=== PATIENT | female | born 1950 | race Two or more races ===

== ENCOUNTER 2022-08-19 16:59 | Inpatient (IN) | payer OTHER, MEDICAID ==
[~2022-08-19] VITALS: Ht 144.8 cm; Wt 66.0 kg
[2022-08-19] MEDS: ACCU-CHEK COMFORT CURVE STRIP VI SCH (06:50)
[2022-08-19 17:32] LABS: Basophils # (auto) 0 10 ^3/uL (0-0.2); Basophils % (auto) 0.2 % (0.0-2.0); Eosinophils # (auto) 0 10 ^3/uL (0-0.8); Eosinophils % (auto) 0.1 % (0.0-7.0); Hematocrit 45.2 % (36.0-46.0); Hemoglobin 15.2 g/dL (12.2-16.2); Lymphocytes # (auto) 1.4 10 ^3/uL (0.4-5.4); Lymphocytes % (auto) 9.7 % (10.0-50.0); Mean Corpuscular Hemoglobin 30.9 pg (28.0-32.0); Mean Corpuscular Hgb Conc. 33.6 g/dL (32.0-36.0); Mean Corpuscular Volume 91.9 fL (80.0-100.0); Monocytes # (auto) 0.8 10 ^3/uL (0-1.3); Monocytes % (auto) 5.2 % (0.0-12.0); Neutrophils # (auto) 12.2 10 ^3/uL (1.6-8.6); Neutrophils % (auto) 84.8 % (37.0-80.0); Nucleated Red Blood Cells % 0.3 %; Red Blood Cells 4.91 10^6/uL (4.0-5.20); Red Cell Distribution Width 13.4 % (11.8-14.3); White Blood Cell 14.5 10^3/uL (4.4-10.8)
[2022-08-19 17:46] LABS: Albumin 3.9 g/dL (3.4-5.0); INR 0.9 (0.9-1.15); Magnesium 2.3 mg/dL (1.6-2.6); Partial Thromboplastin Time 25.4 sec (24.6-33.4); Potassium 3.8 mmol/L (3.5-5.1)
[2022-08-19 17:50] LABS: BUN/Creatinine Ratio 16.4; Bilirubin, Total 0.5 mg/dL (0.2-1.0); Total Protein 7.6 g/dL (6.4-8.2)
[2022-08-19] MEDS ORDERED: DEXTROSE (50%) 50ML SYRG IV PRN (18:45)
[2022-08-19] MEDS ORDERED: MAALOX PLUS or MAALOX 30 ML PO ONE (18:45)
[2022-08-19] MEDS ORDERED: NITROGLYCERIN 0.4 MG SL TAB SL PRN (18:45)
[2022-08-19] MEDS ORDERED: ONDANSETRON HCL 4 MG/2 ML VIAL IV PRN (18:45)
[2022-08-19] MEDS ORDERED: MORPHINE SULFATE 4 MG/ML SYR/VIAL IV PRN (18:45)
[2022-08-19] MEDS ORDERED: CARVEDILOL 3.125 MG TAB PO SCH (22:00)
[2022-08-20 06:59] LABS: Basophils # (auto) 0.1 10 ^3/uL (0-0.2); Basophils % (auto) 0.4 % (0.0-2.0); Eosinophils # (auto) 0 10 ^3/uL (0-0.8); Eosinophils % (auto) 0.1 % (0.0-7.0); Hematocrit 41.9 % (36.0-46.0); Hemoglobin 14.5 g/dL (12.2-16.2); Lymphocytes # (auto) 2.2 10 ^3/uL (0.4-5.4); Lymphocytes % (auto) 18.9 % (10.0-50.0); Mean Corpuscular Hemoglobin 31.5 pg (28.0-32.0); Mean Corpuscular Hgb Conc. 34.5 g/dL (32.0-36.0); Mean Corpuscular Volume 91.4 fL (80.0-100.0); Monocytes # (auto) 1.1 10 ^3/uL (0-1.3); Monocytes % (auto) 9.4 % (0.0-12.0); Neutrophils # (auto) 8.2 10 ^3/uL (1.6-8.6); Neutrophils % (auto) 71.2 % (37.0-80.0); Nucleated Red Blood Cells % 0.2 %; Red Blood Cells 4.59 10^6/uL (4.0-5.20); Red Cell Distribution Width 13.4 % (11.8-14.3); White Blood Cell 11.6 10^3/uL (4.4-10.8)
[2022-08-20 07:22] LABS: Calcium 10.3 mg/dL (8.5-10.1)
[2022-08-20 07:26] LABS: BUN/Creatinine Ratio 19.8
[2022-08-20] MEDS: InsuLIN REG 1unit/0.01ml Soln (100units/ml) SC SCH ×6 (07:37→23:47)
[2022-08-20] MEDS: ACCU-CHEK COMFORT CURVE STRIP VI SCH ×6 (07:39→23:47)
[2022-08-20] MEDS: ATORVASTATIN 20 MG TAB PO SCH ×2 (09:35→22:00)
[2022-08-20] MEDS: DOCUSATE SOD 100 MG CAP PO SCH (09:51)
[2022-08-20] MEDS: LISINOPRIL 5 MG TAB PO SCH (09:52)
[2022-08-20] MEDS: ASPirin 81 mg TAB PO SCH (09:52)
[2022-08-20] MEDS ORDERED: CLOPIDOGREL BISULFATE 75 MG TAB PO SCH (10:00)
[2022-08-20] MEDS: AZITHROMYCIN 250 MG TAB PO SCH (10:31)
[2022-08-20 22:30] VITALS: BP 138/46
[2022-08-20] MEDS: ACETAMINOPHEN 325 MG TAB PO PRN (22:51)
[2022-08-20 22:59] VITALS: BP 138/46
[2022-08-21] VITALS (7 sets, daily range): BP systolic 113–132; BP diastolic 37–68
[2022-08-21] MEDS: InsuLIN REG 1unit/0.01ml Soln (100units/ml) SC SCH ×3 (04:00→12:34)
[2022-08-21] MEDS: ACCU-CHEK COMFORT CURVE STRIP VI SCH ×3 (04:01→12:34)
[2022-08-21] MEDS: ACETAMINOPHEN 325 MG TAB PO PRN ×2 (08:25→15:22)
[2022-08-21] MEDS: DOCUSATE SOD 100 MG CAP PO SCH (09:03)
[2022-08-21] MEDS: ASPirin 81 mg TAB PO SCH (09:03)
[2022-08-21] MEDS: LISINOPRIL 5 MG TAB PO SCH (09:04)
[2022-08-21] MEDS: AZITHROMYCIN 250 MG TAB PO SCH (09:04)
[2022-08-21] MEDS: cefTRIAXone 1GM/50ML D5W 50 ML IV SCH (10:55)
[2022-08-21 20:00] LABS: Urine Bacteria NONE SEEN /hpf (None Seen); Urine Blood 1+ /uL (Negative); Urine Specific Gravity 1.016 (1.001-1.035); Urine WBC 366 /hpf (0 - 5)
[2022-08-21] MEDS: ATORVASTATIN 20 MG TAB PO SCH (21:41)
[2022-08-22 05:00] VITALS: BP 131/62
[2022-08-22 06:21] LABS: Basophils # (auto) 0 10 ^3/uL (0-0.2); Basophils % (auto) 0.3 % (0.0-2.0); Eosinophils # (auto) 0.1 10 ^3/uL (0-0.8); Hematocrit 40.2 % (36.0-46.0); Hemoglobin 13.2 g/dL (12.2-16.2); Lymphocytes # (auto) 2.2 10 ^3/uL (0.4-5.4); Mean Corpuscular Hemoglobin 30.9 pg (28.0-32.0); Mean Corpuscular Hgb Conc. 32.7 g/dL (32.0-36.0); Mean Corpuscular Volume 94.3 fL (80.0-100.0); Monocytes # (auto) 0.5 10 ^3/uL (0-1.3); Monocytes % (auto) 7.1 % (0.0-12.0); Neutrophils % (auto) 58.6 % (37.0-80.0); Nucleated Red Blood Cells % 0.2 %; Red Blood Cells 4.26 10^6/uL (4.0-5.20); Red Cell Distribution Width 13.3 % (11.8-14.3); White Blood Cell 6.8 10^3/uL (4.4-10.8)
[2022-08-22 06:33] LABS: Albumin 2.8 g/dL (3.4-5.0); Calcium 9.9 mg/dL (8.5-10.1); Potassium 3.9 mmol/L (3.5-5.1)
[2022-08-22 06:36] LABS: BUN/Creatinine Ratio 21.8
[2022-08-22 06:39] LABS: Bilirubin, Total 0.4 mg/dL (0.2-1.0)
[2022-08-22 08:00] VITALS: BP 134/73
[2022-08-22] MEDS: ACETAMINOPHEN 325 MG TAB PO PRN (08:20)
[2022-08-22 08:44] VITALS: BP 134/73
[2022-08-22] MEDS: ASPirin 81 mg TAB PO SCH (09:29)
[2022-08-22] MEDS: cefTRIAXone 1GM/50ML D5W 50 ML IV SCH (09:29)
[2022-08-22] MEDS: DOCUSATE SOD 100 MG CAP PO SCH (09:30)
[2022-08-22] MEDS: LISINOPRIL 5 MG TAB PO SCH (09:30)
[2022-08-22] MEDS: AZITHROMYCIN 250 MG TAB PO SCH (09:31)
[2022-08-22] MEDS ORDERED: DOXY-332 PO (12:27)
[2022-08-22 12:56] VITALS: BP 124/66
[2022-08-22 13:44] VITALS: BP_SYST 122; BP_SYST 127; BP_SYST 139; BP_DIAS 76; BP_DIAS 78; BP_DIAS 83
[2022-08-22 14:02] VITALS: BP 134/73
== END 2022-08-22 14:45 | disposition home or self-care (01) | DRG 872 ==
LOC: ER 17:02 → TELE 18:45 → TELE-WESTW 08-20 22:00
PROVIDERS: ADMIT Hospitalist; ATTEND Nurse Practitioner Acute Care
DX: A41.9 Sepsis, unspecified organism (principal); J06.9 Acute upper respiratory infection, unspecified; E11.21 Type 2 diabetes mellitus with diabetic nephropathy; F17.210 Nicotine dependence, cigarettes, uncomplicated; E83.52 Hypercalcemia; Z20.822 Contact with and (suspected) exposure to COVID-19; E66.9 Obesity, unspecified; I25.10 Atherosclerotic heart disease of native coronary artery without angina pectoris; Z87.442 Personal history of urinary calculi; Z90.49 Acquired absence of other specified parts of digestive tract; Z95.5 Presence of coronary angioplasty implant and graft; Z68.31 Body mass index [BMI] 31.0-31.9, adult
CPT/HCPCS: 36415; 71045; 71275; 80048; 80053; 81001; 82962; 83036; 83735; 83880; 84484; 85025; 85610; 85730; 87086; 87088; 87186; 87426; 87804; 93005; G0378; J0696; J1815